=== PATIENT | female | born 1980 | race Caucasian/White ===

== ENCOUNTER 2020-08-19 23:43 | Emergency (ER) | payer OTHER ==
[~2020-08-19] VITALS: Ht 167.6 cm; Wt 63.6 kg
--- NOTE | 2020-08-19 23:52 | PHYS DOC ---
General Adult HPI: HPI: History obtained from patient. Patient is a 40-year-old female with no reported past medical history who presents with chief complaint of right lower back pain status post fall that occurred 2 hours prior to arrival. States she was walking up steps trying to enter an camper. States she slipped and fell. States she landed on her lower back. She states she was immediately able to get up and has been ambulatory for the past hour. However she states that she bent over to pick something up, twisted and suddenly noticed worsening right lower back pain. She states it is difficult to move or walk. Did try 4 Advil tablets prior to arrival with minimal relief. Denies striking her head or loss of consciousness when she fell initially. Denies any chest pain or shortness of breath. Denies abdominal pain. Denies vomiting. Patient denies any urinary retention, stool incontinence, saddle anesthesia, history of IV drug use, or history of cancer. Review of Systems: Review of Systems: Constitutional: Denies fever or chills. [] Eyes: Denies change in visual acuity. [] HENT: Denies nasal congestion or sore throat. [] Respiratory: Denies cough or shortness of breath. [] Cardiovascular: Denies chest pain or edema. [] GI: Denies abdominal pain, nausea, vomiting, bloody stools or diarrhea. [] : Denies dysuria. [] Musculoskeletal: Denies back pain or joint pain. [] Integument: Denies rash. [] Neurologic: Denies headache, focal weakness or sensory changes. [] Endocrine: Denies polyuria or polydipsia. [] Lymphatic: Denies swollen glands. [] Psychiatric: Denies depression or anxiety. [] Heart Score: Risk Factors: Risk Factors: DM, Current or recent (<one month) smoker, HTN, HLP, family history of CAD, obesity. Risk Scores: Score 0 - 3: 2.5% MACE over next 6 weeks - Discharge Home Score 4 - 6: 20.3% MACE over next 6 weeks - Admit for Clinical Observation Score 7 - 10: 72.7% MACE over next 6 weeks - Early Invasive Strategies Physical Exam: PE: Physical Exam Trauma: Primary Survey: Airway: Intact. Speaks in normal voice and phonation. Breathing: Breath sounds are clear and equal bilaterally. Circulation: Regular rhythm, 2+ and symmetric radial, DP and PT pulses. Disability: GCS on arrival was 15. Pupils 3 mm, ERRL Exposure: Complete exposure obtained and described in detail below. Secondary Survey: General: Awake, alert, appropriate, and in moderate acute distress HENT: Atraumatic. TMs clear bilaterally, no hemotympanum. No periorbital tenderness or deformity. No obvious craniofacial trauma. Midface is stable. No apparent dental or tongue/oropharyngeal injury. No septal hematoma. Neck: C-spine: no midline tenderness. Without step-off, deformity, abrasion, ecchymosis, or other signs of trauma. Paraspinal musculature with no tenderness and/or hypertonicity. Eyes: Pupils 3 mm ERRL, EOMI grossly, no evidence of ocular trauma, conjunctivae normal Respiratory: CTAB without wheezing, rhonchi, or rales. No distress. Chest wall with no tenderness to palpation. No crepitus, ecchymosis, or flail segment present. Cardiovascular: Regular rhythm without murmurs noted. 2+ and symmetric radial, DP and PT pulses. GI: Soft, non-tender, non-distended Musculoskeletal: T-spine: no midline tenderness. Without step-off, deformity, abrasion, ecchymosis, or other signs of trauma. Paraspinal musculature with moderate right tenderness and/or hypertonicity. L-spine: no midline tenderness. Without step-off, deformity, abrasion, ecchymosis, or other signs of trauma. Paraspinal musculature with moderate right tenderness and/or hypertonicity. RUE: Active ROM, no obvious deformity, no gross weakness or sensory deficits, warm & well-perfused LUE: Active ROM, no obvious deformity, no gross weakness or sensory deficits, warm & well-perfused RLE: Active ROM, no obvious deformity, no gross weakness or sensory deficits, warm & well-perfused LLE: Active ROM, no obvious deformity, no gross weakness or sensory deficits, warm & well-perfused Integument: Without abrasions, contusions, or lacerations. Neurologic: GCS on arrival as noted above. No obvious focal motor or sensory deficits on examination. Gait not assessed due to acuity of trauma assessment. Current Patient Data: Vital Signs: Vital Signs Date Time Temp Pulse Resp B/P (MAP) Pulse Ox O2 Delivery O2 Flow Rate FiO2 08/19/20 23:55 98.6 102 20 120/64 (82) 98 Room Air 98.6 EKG: EKG: [] Radiology/Procedures: Radiology/Procedures: [facility] [address] [place] [address] IMAGING REPORT Signed PATIENT: VENECIA BURRIS ACCOUNT: [id number] : 1980 LOCATION: ER AGE: 40 SEX: F EXAM STATUS: REG ER ORD. PHYSICIAN: SANJUANITA GREGORIO DO REASON: left lower BP s/p fall PROCEDURE: CT LUMBAR SPINE WO CONTRAST STUDY: 1. CT thoracic spine without contrast 2. CT lumbar spine without contrast INDICATION: Right lower back pain status post fall. COMPARISON: None. TECHNIQUE: Helical CT imaging of the thoracic and lumbar spine performed without the use of contrast. Coronal and sagittal reformats were obtained. One or more of the following individualized dose reduction techniques were utilized for this examination: 1. Automated exposure control 2. Adjustment of the mA and/or kV according to patient size 3. Use of iterative reconstruction technique. FINDINGS: THORACIC SPINE: Mild motion degradation at the lower cervical and upper thoracic spine. No acute fracture seen throughout the thoracic spine or traumatic malalignment. The posterior elements are relatively unremarkable with only mild facet degeneration at a few levels such as on the right at T10-T11. No severe osseous encroachment on the central canal or neural foramina. No prevertebral or dorsal paraspinous hematoma. No acute abnormality of the visualized lungs. LUMBAR SPINE: No acute fracture. No traumatic malalignment. No significant central canal or neural foraminal stenosis. No prevertebral or dorsal paraspinous edema/hemorrhage. Intrauterine contraceptive device. No acute abnormality of the partially evaluated abdomen and pelvis. The visualized pelvis osseous structures are intact. IMPRESSION: THORACIC SPINE: 1. No acute fracture or traumatic malalignment. LUMBAR SPINE: 1. No acute fracture or traumatic malalignment. Electronically signed by: HIRAM MEJIA MD (08/20/2020 2:45 AM) [id number] DICTATED and SIGNED BY: HIRAM MEJIA MD DATE: 08/20/20 0245 [] Course & Med Decision Making: Course & Med Decision Making Pertinent Labs and Imaging studies reviewed. (See chart for details) [] Patient is a 40-year-old female presents with complaint of right lumbar paraspinal pain status post mechanical fall prior to arrival. Examination overall reassuring. No red flag signs or symptoms regarding her back pain. Neurologic exam unremarkable. CT imaging of the thoracic lumbar spine reveals no acute osseous abnormality. Patient's pain was well controlled emergency department. She was able to ambulate without assistance. She will be disch arged home with Lidoderm and Flexeril. She was encouraged to use anti- inflammatories as needed. She will be given referral to a neurosurgeon should she develop chronic back pain requiring further work-up. Return precautions discussed and understood. Stable for discharge home. Dragon Disclaimer: Powered by Peak Disclaimer: This electronic medical record was generated, in whole or in part, using a voice recognition dictation system. Departure Departure Impression: Primary Impression: Fall Qualified Codes: W19.XXXA - Unspecified fall, initial encounter Additional Impression: Low back pain Qualified Codes: M54.5 - Low back pain Disposition: 01 [place] HOME SELF CARE/HOMELESS Condition: STABLE Referrals: KATTY PIÑA MD Patient Instructions: Back Injury Prevention, Back Pain, Adult Scripts Lidocaine (Lidocaine PATCH ) 1 Each Adh..patch 1 EACH TP DAILY for FOR LOCAL PAIN for 5 Days, #5 PATCH REMOVE AFTER 12 HOURS. 4% Prov: SANJUANITA GREGORIO DO 08/20/20 Cyclobenzaprine Hcl (CYCLOBENZAPRINE HCL) 5 Mg Tablet 5 MG PO PRN TID PRN for PAIN, #15 TAB Prov: SANJUANITA GREGORIO DO 08/20/20 SANJUANITA GREGORIO DO Aug 19, 2020 23:52
[2020-08-20] MEDS ORDERED: HYDROmorphone 2 MG/ML VIAL IM ONE (00:30)
[2020-08-20] MEDS ORDERED: LIDOCAINE (700MG/PATCH) PATCH. TD ONE (00:30)
[2020-08-20] MEDS ORDERED: CYCLOBENZAPRINE 10 MG TABLET. PO ONE (00:30)
[2020-08-20] MEDS ORDERED: KETOROLAC 15 MG/ML VIAL. IVP ONE (02:00)
--- NOTE | 2020-08-20 02:48 | RAD ---
STUDY: 1. CT thoracic spine without contrast 2. CT lumbar spine without contrast INDICATION: Right lower back pain status post fall. COMPARISON: None. TECHNIQUE: Helical CT imaging of the thoracic and lumbar spine performed without the use of contrast. Coronal and sagittal reformats were obtained. One or more of the following individualized dose reduction techniques were utilized for this examination: 1. Automated exposure control 2. Adjustment of the mA and/or kV according to patient size 3. Use of iterative reconstruction technique. FINDINGS: THORACIC SPINE: Mild motion degradation at the lower cervical and upper thoracic spine. No acute fracture seen throughout the thoracic spine or traumatic malalignment. The posterior elements are relatively unremarkable with only mild facet degeneration at a few levels such as on the right at T10-T11. No severe osseous encroachment on the central canal or neural foramina. No prevertebral or dorsal paraspinous hematoma. No acute abnormality of the visualized lungs. LUMBAR SPINE: No acute fracture. No traumatic malalignment. No significant central canal or neural foraminal stenosis. No prevertebral or dorsal paraspinous edema/hemorrhage. Intrauterine contraceptive device. No acute abnormality of the partially evaluated abdomen and pelvis. The visualized pelvis osseous structures are intact. IMPRESSION: THORACIC SPINE: 1. No acute fracture or traumatic malalignment. LUMBAR SPINE: 1. No acute fracture or traumatic malalignment. Electronically signed by: HIRAM MEJIA MD (08/20/2020 2:45 AM) [id number]
[2020-08-20] MEDS ORDERED: CYCL5TAB PO (02:55)
[2020-08-20] MEDS ORDERED: LIDO700A21 TP (02:55)
[2020-08-20 03:03] VITALS: BP 109/68
== END 2020-08-20 03:05 | disposition home or self-care (01) ==
LOC: ER 23:43
DX: M54.5 Low back pain (principal); G89.11 Acute pain due to trauma; W01.0XXA Fall on same level from slipping, tripping and stumbling without subsequent striking against object, initial encounter; Y93.89 Activity, other specified; Y92.89 Other specified places as the place of occurrence of the external cause; Y99.8 Other external cause status
CPT/HCPCS: 36415; 72128; 72131; 84702; 96374; 99285; J1885